=== PATIENT | female | born 1945 | race Caucasian/White ===

== ENCOUNTER 2021-12-15 19:58 | Emergency (ER) | payer MEDICARE ==
[~2021-12-15] VITALS: Ht 162.6 cm; Wt 95.3 kg
[2021-12-15 20:31] VITALS: BP_SYST 162
--- NOTE | 2021-12-15 20:38 | NUR ---
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 Landed on right knee, denies head injury or KO. Hx HTN, bilateral knee and left hip replacements.
--- NOTE | 2021-12-15 20:41 | NUR ---
Pt placed in bed 6 and placed on monitor. Report given to Krystal LARA.
--- NOTE | 2021-12-15 20:48 | NUR ---
ER at bedside examining patient.
--- NOTE | 2021-12-15 20:48 | NUR ---
Dora solorio in [facility] - 12/15/21 at 2048 by SDEDPR AARON Mai at bedside examining patient.
[2021-12-15] MEDS ORDERED: TRAM50TA PO (21:25)
[2021-12-15] MEDS ORDERED: traMADol HCL HCL 50 MG TABLET (ULTRAM) PO ONE (21:30)
--- NOTE | 2021-12-15 22:15 | NUR ---
Patient given written and verbal discharge instructions and verbalizes understanding. ER MD discussed with patient the results and treatment provided. Patient in stable condition. ID arm band removed. Rx of TRAMADOL given. Patient educated on pain management and to follow up with PMD. Pain Scale 10/10. Opportunity for questions provided and answered. Medication side effect fact sheet provided.
== END 2021-12-15 22:15 | disposition home or self-care (01) ==
LOC: SED 19:58
DX: S93.401A Sprain of unspecified ligament of right ankle, initial encounter (principal); Z88.0 Allergy status to penicillin; Z91.040 Latex allergy status; Z79.899 Other long term (current) drug therapy; X50.1XXA Overexertion from prolonged static or awkward postures, initial encounter; Y93.89 Activity, other specified; Y92.89 Other specified places as the place of occurrence of the external cause; Y99.8 Other external cause status
CPT/HCPCS: 99283